=== PATIENT | male | born 1960 | race Caucasian/White ===

== ENCOUNTER 2021-07-06 13:08 | Emergency (ER) | payer BC ==
[2021-07-06] MEDS ORDERED: HYDROmorphone 1 MG/ML Syringe IVPUSH ONE (13:31)
[2021-07-06] MEDS ORDERED: Sodium Chloride 0.9% 10 ML Syringe FLUSH PRN (13:31)
[2021-07-06] MEDS ORDERED: Ondansetron 4 MG/2 ML SDV IVPUSH ONE (13:31)
--- NOTE | 2021-07-06 13:34 | EDM.PDOC ---
ED HPI GENERAL MEDICAL PROBLEM - General Chief Complaint: Flank Pain Stated Complaint: POSS KIDNEY STONE/STOMA ISSUES Time Seen by Provider: 07/06/21 13:18 Source of Information: Reports: Patient, RN Notes Reviewed History Limitations: Reports: No Limitations - History of Present Illness INITIAL COMMENTS - FREE TEXT/NARRATIVE: Patient is a 61-year-old male who presents to the ER for the evaluation of his left-sided flank pain. Patient states he has a history of kidney stones, but this was back in 1993 1994, he states that he does have pain similar to when he had kidney stones in the past. Patient also has an ostomy place, due to colorectal cancer. States that he ate a little bit too much steak last night, and he drank some mag citrate to help relieve himself, and he did have success last night but he has not had any bowel movement since then. He is having some generalized abdominal distention and pain/discomfort. No fevers no chills, no cough or shortness of breath, or any sort of vomiting or diarrhea. He has had some slight nausea when the pain is at its worst. Left Lower Abdomen Pain Score (Numeric/FACES): 10 - Related Data Allergies Allergy/AdvReac Type Severity Reaction Status Date / Time No Known Allergies Allergy Verified 07/06/21 13:17 Home Meds: Home Meds Acetaminophen/oxyCODONE [Percocet 325-5 MG] 1 each PO Q6H PRN #20 tab 07/06/21 [Rx] Ondansetron [Zofran ODT] 4 mg PO Q8H PRN #15 tab.dis 07/06/21 [Rx] Tamsulosin [Tamsulosin 24 Hr] 0.4 mg PO DAILY #7 cap.er 07/06/21 [Rx] Testosterone Cypionate [Depo-Testosterone] 200 mg IM ASDIRECTED 07/06/21 [History] traMADol HCl [Tramadol HCl] 50 mg PO Q6H PRN 07/06/21 [History] Past Medical History Gastrointestinal History: Reports: Other (See Below) (has ostomy) Genitourinary History: Reports: Renal Calculus Musculoskeletal History: Reports: RA Oncologic (Cancer) History: Reports: Other (See Below) Other Oncologic History: Rectal, Current Stomach Lesion as of 2020 - Past Surgical History GI Surgical History: Reports: Colonoscopy, Colostomy, Other (See Below) Other GI Surgeries/Procedures: Bowel Resection due to Rectal CA, colostomy bag. Musculoskeletal Surgical History: Reports: Arthroscopic Knee, Shoulder Surgery, Other (See Below) Other Musculoskeletal Surgeries/Procedures:: Knee Surgery Social & Family History - Tobacco Use Tobacco Use Status *Q: Never Tobacco User - Caffeine Use Caffeine Use: Reports: None - Recreational Drug Use Recreational Drug Use: No ED ROS GENERAL - Review of Systems Review Of Systems: Comprehensive ROS is negative, except as noted in HPI. ED EXAM, RENAL/ - Physical Exam Exam: See Below Exam Limited By: No Limitations General Appearance: Alert, WD/WN, No Apparent Distress Respiratory/Chest: No Respiratory Distress, Lungs Clear, Normal Breath Sounds, No Accessory Muscle Use, Chest Non-Tender Cardiovascular: Normal Peripheral Pulses, Regular Rate, Rhythm, No Edema GI/Abdominal: Normal Bowel Sounds, Soft, No Distention, No Mass, Tender (generalized) Back Exam: No: CVA Tenderness (L), CVA Tenderness (R) Extremities: Normal Inspection, Normal Capillary Refill Neurological: Alert, Oriented, Normal Cognition, No Motor/Sensory Deficits Psychiatric: Normal Affect, Normal Mood Skin Exam: Warm, Dry, Intact, Normal Color, No Rash Course - Vital Signs Last Recorded V/S: Last Vital Signs Temp 97.2 F 07/06/21 13:15 Pulse 80 07/06/21 13:15 Resp 16 07/06/21 13:15 BP 173/98 H 07/06/21 13:15 Pulse Ox 93 L 07/06/21 13:15 - Orders/Labs/Meds Orders: Active Orders 24 hr Category Date Time Status Peripheral IV Care [RC] . DIRECTED Care 07/06/21 13:31 Active Sodium Chloride 0.9% [Saline Flush] Med 07/06/21 13:31 Active 10 ml FLUSH ASDIRECTED PRN Peripheral IV Insertion Adult [OM.PC] Routine Oth 07/06/21 13:30 Ordered Medication Orders Sodium Chloride (Sodium Chloride 0.9% 10 Ml Syringe) 10 ml FLUSH ASDIRECTED PRN PRN Reason: Keep Vein Open Last Admin: 07/06/21 14:05 Dose: 10 ml Documented by: JUAN Labs: Laboratory Tests 07/06/21 07/06/21 07/06/21 Range/Units 14:00 14:00 14:00 WBC 10.22 H (4.23-9.07) K/mm3 RBC 5.37 (4.63-6.08) M/mm3 Hgb 16.4 (13.7-17.5) gm/dl Hct 49.5 (40.1-51.0) % MCV 92.2 (79.0-92.2) fl MCH 30.5 (25.7-32.2) pg MCHC 33.1 (32.2-35.5) g/dl RDW Std Deviation 50.5 H (35.1-43.9) fL Plt Count 196 (163-337) K/mm3 MPV 9.0 L (9.4-12.3) fl Neut % (Auto) 88.0 H (34.0-67.9) % Lymph % (Auto) 4.7 L (21.8-53.1) % Powell % (Auto) 6.7 (5.3-12.2) % Eos % (Auto) 0.2 L (0.8-7.0) Baso % (Auto) 0.2 (0.1-1.2) % Neut # (Auto) 9.00 H (1.78-5.38) K/mm3 Lymph # (Auto) 0.48 L (1.32-3.57) K/mm3 Powell # (Auto) 0.68 (0.30-0.82) K/mm3 Eos # (Auto) 0.02 L (0.04-0.54) K/mm3 Baso # (Auto) 0.02 (0.01-0.08) K/mm3 Sodium 137 (136-145) mEq/L Potassium 3.9 (3.5-5.1) mEq/L Chloride 100 (98-107) mEq/L Carbon Dioxide 29 (21-32) mEq/L Anion Gap 11.9 (5-15) BUN 15 (7-18) mg/dL Creatinine 1.8 H (0.7-1.3) mg/dL Est Cr Clr Drug Dosing 37.91 mL/min Estimated GFR (MDRD) 38 (>60) mL/min BUN/Creatinine Ratio 8.3 L (14-18) Glucose 107 H (70-99) mg/dL Calcium 8.5 (8.5-10.1) mg/dL Total Bilirubin 0.8 (0.2-1.0) mg/dL AST 26 (15-37) U/L ALT 32 (16-63) U/L Alkaline Phosphatase 71 (46-116) U/L C-Reactive Protein 2.2 H* (<1.0) mg/dL Total Protein 7.4 (6.4-8.2) g/dl Albumin 3.9 (3.4-5.0) g/dl Globulin 3.5 gm/dL Albumin/Globulin Ratio 1.1 (1-2) Urine Color Dark yellow (Yellow) Urine Appearance Clear (Clear) Urine pH 7.0 (5.0-8.0) Ur Specific [place] 1.025 (1.005-1.030) Urine Protein 2+ H (Negative) Urine Glucose (UA) Negative (Negative) Urine Ketones Trace H (Negative) Urine Occult Blood Trace-intact H (Negative) Urine Nitrite Negative (Negative) Urine Bilirubin Negative (Negative) Urine Urobilinogen 0.2 (0.2-1.0) Ur Leukocyte Esterase Negative (Negative) Urine RBC 10-20 H (0-5) /hpf Urine WBC 0-5 (0-5) /hpf Ur Squamous Epith Cells 0-5 (0-5) /hpf Amorphous Sediment Moderate H (NOT SEEN) /hpf Urine Bacteria Moderate H (FEW) /hpf Urine Mucus Few (FEW) /hpf Meds: Medications Generic Name Dose Route Start Last Admin Trade Name Kerrie PRN Reason Stop Dose Admin Sodium Chloride 10 ml 07/06/21 13:31 07/06/21 14:05 Sodium Chloride 0.9% 10 Ml Syringe FLUSH 10 ml ASDIRECTED PRN Administration Keep Vein Open Discontinued Medications Generic Name Dose Route Start Last Admin Trade Name Kerrie PRN Reason Stop Dose Admin Hydromorphone HCl 1 mg 07/06/21 13:31 07/06/21 14:04 Hydromorphone 1 Mg/Ml Syringe IVPUSH 07/06/21 13:32 1 mg ONETIME ONE Administration Ondansetron HCl 4 mg 07/06/21 13:31 07/06/21 14:04 Ondansetron 4 Mg/2 Ml Sdv IVPUSH 07/06/21 13:32 4 mg ONETIME ONE Administration Tamsulosin HCl 0.4 mg 07/06/21 14:59 Tamsulosin 0.4 Mg Cap.Er PO 07/06/21 15:00 ONETIME ONE - Re-Assessments/Exams Free Text/Narrative Re-Assessment/Exam: 07/06/21 13:34 Patient presents to the ER for the evaluation of his flank pain, and possible ostomy blockage. We will go ahead and get a abdomen pelvis CT without contrast, given some pain meds and nausea meds, get some basic labs for further evaluation. 07/06/21 14:[address] has been performed, there is a 4 mm obstructing stone in the left proximal ureter. There is quite a bit of inflammatory change around the left kidney as well. There were 2 nondilated loops of small bowel, and hernias about the ostomy but no sign of strangulation were noted. There was quite a large stool burden on the CT that was not mentioned, which could be part of him feeling constipated. 07/06/21 14:56 The patient's laboratory evaluation has come back, his white count is mildly elevated at 10, with 88% neutrophils on the auto differential. CMP demonstrates an elevated creatinine 1.8, and a GFR low at 38, this is a marked difference from his labs done in November 2020 where his creatinine was 1.0, and GFR was over 60. CRP is also elevated at 2.2. I did call [facility] [place] and talked with urologist, Dr. Billingsley and he has no major concerns regarding the metabolic panel. He does recommend that the patient get a KUB today, and follow-up with someone in a week for another KUB and repeat creatinine to see how the patient is doing. He does note that urology is fairly booked up, and that he can try to call to schedule an appoint with them for next week but he is not sure if they will be able to see the patient unless they have a cancellation. He also states that he can follow-up with his primary care provider for ongoing management. Departure - Departure Time of Disposition: 15:12 Disposition: Home, Self-Care 01 Condition: Good Clinical Impression: Kidney stone on left side, Acute renal insufficiency - Discharge Information *PRESCRIPTION DRUG MONITORING PROGRAM REVIEWED*: Yes *COPY OF PRESCRIPTION DRUG MONITORING REPORT IN PATIENT FRANTZ: No Prescriptions: Tamsulosin [Tamsulosin 24 Hr] 0.4 mg PO DAILY #7 cap.er Acetaminophen/oxyCODONE [Percocet 325-5 MG] 1 each PO Q6H PRN #20 tab PRN Reason: Pain Ondansetron [Zofran ODT] 4 mg PO Q8H PRN #15 tab.dis PRN Reason: Nausea Instructions: Dietary Guidelines to Help Prevent Kidney Stones, Kidney Stones, [id number] Referrals: Odilia Cortez NUTRITION SPECIALIST [Primary Care Provider] - Forms: ED Department Discharge Additional Instructions: You were evaluated in the ER today for your left-sided flank pain. Your urinalysis did demonstrate some blood in urine, which is suggestive of a kidney stone at this time. A CT was done at this ER visit, this demonstrated a 4 mm stone within your proximal left ureter. You have been given a strainer, please use every time you use the bathroom to make sure that the kidney stone has passed. Recommend that you increase your oral fluid intake to try to help the stone pass. You have been given a few tablets of pain medication, please take as prescribed. These medications are highly addictive, please take as few as you need to. These medications also may cause constipation, please take a stool softener like MiraLAX while taking these medications. You have been given a few doses of Flomax, your first dose was given in the ER, and you will need to take 1 tablet daily for the next few days, until the stone has passed. You were also given a medication for nausea, 1 tablet dissolvable under your tongue every 8 hours as needed for ongoing nausea. This medication was electronically sent to the [place] pharmacy located in the [facility] grocery store. Urology at [facility] in [place] was consulted on your case, due to some changes in your kidney status due to the stone. They are requesting that you have a follow-up appointment in 1 week's time, either at their clinic, which she may call [phone] for an appointment, or follow-up with your primary care provider in [facility]. They are recommending that you get a KUB x-ray, and repeat metabolic panel to check on your creatinine level to make sure that it is getting better as expected. Please return to the ED if your symptoms change or worsen. Sepsis Event Note (ED) - Evaluation Sepsis Screening Result: No Definite Risk - Focused Exam Vital Signs: Vital Signs Temp Pulse Resp BP Pulse Ox 07/06/21 13:15 97.2 F 80 16 173/98 H 93 L - My Orders Last 24 Hours: My Active Orders 07/06/21 13:30 Peripheral IV Insertion Adult [OM.PC] Routine 07/06/21 13:31 Peripheral IV Care [RC] . DIRECTED Sodium Chloride 0.9% [Saline Flush] 10 ml FLUSH ASDIRECTED PRN - Assessment/Plan Last 24 Hours: My Active Orders 07/06/21 13:30 Peripheral IV Insertion Adult [OM.PC] Routine 07/06/21 13:31 Peripheral IV Care [RC] . DIRECTED Sodium Chloride 0.9% [Saline Flush] 10 ml FLUSH ASDIRECTED PRN
--- NOTE | 2021-07-06 14:05 | CT ---
CT abdomen and pelvis Technique: Multiple axial sections were obtained from above the dome of the diaphragm inferiorly through the pubic symphysis. Intravenous and oral contrast were not utilized. Study has been performed as a ureteral stone protocol. Comparison: No prior abdomen or pelvic imaging is available. Findings: Dilated left renal pelvis, collecting system and proximal ureter are seen. Slight inflammatory change is noted around the kidney and proximal ureter. Findings are caused by a 4 mm stone within the proximal left ureter. No additional ureteral calculi are seen. No bladder calculi are seen. Three small nonobstructing calculi are seen within the right kidney. Two very small nonobstructing calculi are noted within the left kidney. Slight linear densities are noted within both lung bases which are most likely due to small areas of scarring. Liver shows a low density lesion within the right lobe which is compatible with a small cyst measuring 1.0 cm. No additional abnormality seen within the liver. Gallbladder contains no calcified gallstones. Spleen size is normal. Pancreas shows no discrete abnormality. Adrenal glands show no nodule. Abdominal aorta shows mild atherosclerotic calcification which continues into the iliac vessels. No aneurysm is seen. No retroperitoneal adenopathy is seen. No mesenteric abnormalities are seen. Ostomy is noted within the left side of the abdomen. Two small hernias are noted more anteriorly to the ostomy which contain nondilated small bowel loops. No pelvic mass or adenopathy is seen. No free fluid is noted. Bone window settings were reviewed which show disc space narrowing within the lower thoracic spine as well as severe disc space narrowing at L2-3 with degenerative endplate sclerosis. Severe disc space narrowing is noted at L5-S1 with vacuum disc phenomena. Severe degenerative apophyseal change is noted at L4-5 causing mild spondylolisthesis. Impression: 1. 4 mm obstructing stone within the proximal left ureter. 2. Ostomy within the left abdomen. Two additional hernias are seen anterior to the ostomy containing nondilated small bowel loops. 3. Small nonobstructing calculi seen within both kidneys. 4. Other findings believed to be incidental as described above. Diagnostic code #3
[2021-07-06] MEDS ORDERED: Tamsulosin 0.4 MG Cap.ER PO ONE (14:59)
--- NOTE | 2021-07-06 16:01 | CR ---
Abdomen: Supine view of the abdomen was obtained. Comparison: No prior abdominal x-ray is available, prior CT abdomen and pelvis study performed earlier on the same day (1:37 PM). Small calcification is seen within the left abdomen slightly superior to the iliac crest. This is compatible with obstructing stones noted on prior CT exam. Other calcifications seen within the kidneys on prior CT study are too small to visualize on this exam. Bowel gas pattern is normal. Mild degenerative change is seen within the spine. Impression: 1. Small obstructing calculus noted within the left abdomen slightly above the level of the superior iliac crest. 2. Other incidental findings as described above. Diagnostic code #3
== END 2021-07-06 16:05 | disposition home or self-care (01) ==
LOC: JD.ED 13:08
DX: N20.2 Calculus of kidney with calculus of ureter (principal); N28.9 Disorder of kidney and ureter, unspecified
CPT/HCPCS: 36415; 74018; 74176; 80053; 81001; 85025; 86140; 96374; 96375; 99284; A9270; J1170; J2405

== ENCOUNTER 2022-03-16 08:44 | Emergency (ER) | payer BC ==
[2022-03-16] MEDS ORDERED: Aspirin 81 MG Tab.Chew PO ONE (09:05)
[2022-03-16] MEDS ORDERED: Dicyclomine 10 MG Cap PO ONE (09:05)
[2022-03-16] MEDS ORDERED: Sodium Chloride 0.9% 1,000 ML IV SCH (09:15)
[2022-03-16 09:47] LABS: ESTIMATED GFR 84 mL/min (>60)
[2022-03-16] MEDS ORDERED: HYDROmorphone 0.5 MG/0.5 ML Syringe IVPUSH ONE (09:53)
[2022-03-16] MEDS ORDERED: Metoclopramide 10 MG/2 ML SDV IVPUSH ONE (09:53)
== END 2022-03-16 13:20 | disposition home or self-care (01) ==
LOC: JD.ED 08:44 → SUPCPDRO 08:44 → JD.ED 13:20
DX: K21.00 Gastro-esophageal reflux disease with esophagitis, without bleeding (principal)
CPT/HCPCS: 36415; 71045; 74176; 80053; 82553; 83735; 83880; 84484; 85025; 85379; 86140; 96374; 96375; 99285; A9270; J1170; J2765; J7030; 93010; 99284

== ENCOUNTER 2022-10-19 06:06 | Day surgery (SDC) | payer BC ==
[~2022-10-19 06:06] MED LIST: Lactated Ringers 1,000 ML IV SCH; Lidocaine 1%/Sod Bicarbonate in NS 8.4% 1 ML Syringe IDERM PRN; Sodium Chloride 0.9% 10 ML Syringe FLUSH PRN; Sodium Chloride 0.9% 10 ML Syringe FLUSH SCH
[2022-10-19] MEDS ORDERED: Lidocaine 1% 10 ML MDV ONE (06:21)
[2022-10-19] MEDS ORDERED: Bupivacaine 0.25% 10 ML SDV ONE (06:21)
[2022-10-19] MEDS ORDERED: Midazolam 1 MG/ML 2 ML SDV ONE (06:28)
[2022-10-19] MEDS ORDERED: fentaNYL 100 MCG/2 ML SDV ONE (06:29)
[2022-10-19] MEDS ORDERED: Propofol 200 MG/20 ML SDV ONE (06:29)
[2022-10-19] MEDS ORDERED: Lidocaine 1% 5 ML VIAL ONE (06:30)
[2022-10-19] MEDS ORDERED: Ondansetron 4 MG/2 ML SDV IVPUSH PRN (06:49)
[2022-10-19] MEDS ORDERED: fentaNYL 100 MCG/2 ML SDV IVPUSH PRN (06:49)
== END 2022-10-19 08:48 | disposition home or self-care (01) ==
LOC: JD.SDS 06:06
PROVIDERS: ATTEND Orthopaedic Surgery
DX: M65.342 Trigger finger, left ring finger (principal); M65.842 Other synovitis and tenosynovitis, left hand; I10 Essential (primary) hypertension; E11.9 Type 2 diabetes mellitus without complications; E07.9 Disorder of thyroid, unspecified; F41.9 Anxiety disorder, unspecified; F32.A Depression, unspecified; E78.00 Pure hypercholesterolemia, unspecified; H25.812 Combined forms of age-related cataract, left eye; M19.90 Unspecified osteoarthritis, unspecified site; G47.00 Insomnia, unspecified; G62.9 Polyneuropathy, unspecified; Z98.890 Other specified postprocedural states; Z79.899 Other long term (current) drug therapy; Z87.891 Personal history of nicotine dependence
CPT/HCPCS: 26055; J2250; J2704; J3010; J3490; J7120; 01810